=== PATIENT | female | born 1980 | race Caucasian/White ===

== ENCOUNTER 2018-10-14 22:33 | Emergency (ER) | payer MEDICAID ==
[~2018-10-14] VITALS: Ht 160 cm; Wt 58.1 kg
[2018-10-14 22:37] VITALS: BP_SYST 113
--- NOTE | 2018-10-14 22:37 | NUR ---
Placed in room 2 . Placed on quality assurance monitor body, blood pressure machine and pulse oximeter. To gown for exam. Side rails up. Report given to Tiffany SPANGLER.
--- NOTE | 2018-10-14 22:46 | NUR ---
ER at bedside examining patient.
--- NOTE | 2018-10-14 22:50 | NUR ---
Pt came to the ED for chest pain for the last 8 days. Reports that pain gets worse with inspirations and it radiates down her L arm. Denies SOB, v/d or fever. Reports she has bilateral burning sensation in her arreolas. States she has seen her primary doctor for the same issue but was told that it was due to "irritation." No other complaints/injuries noted. Will cont. to monitor.
[2018-10-14] MEDS ORDERED: ASPIRIN 81 MG TAB.CHEW PO ONE (23:00)
[2018-10-14] MEDS ORDERED: KETOROLAC TROMETHAMINE 60 MG/2 ML VIAL IM ONE (23:00)
[2018-10-15 00:46] VITALS: BP_SYST 113
--- NOTE | 2018-10-15 00:46 | NUR ---
Patient given written and verbal discharge instructions and verbalizes understanding. ER MD Dr. Seth discussed with patient the results and treatment provided. Patient in stable condition. ID arm band removed. Rx of Naprosyn given. Patient educated on pain management and to follow up with PMD. Pain Scale 0/10. Opportunity for questions provided and answered. Medication side effect fact sheet provided.
== END 2018-10-15 00:46 | disposition home or self-care (01) ==
LOC: SED 22:33
DX: M94.0 Chondrocostal junction syndrome [Tietze] (principal)
CPT/HCPCS: 71045; 96372; 99283; J1885; 93005

== ENCOUNTER 2019-08-03 08:39 | Emergency (ER) | payer MEDICAID, OTHER ==
[~2019-08-03] VITALS: Ht 160 cm; Wt 56.2 kg
[2019-08-03 08:50] VITALS: BP_SYST 121
[2019-08-03 09:44] LABS: BILIRUBIN,URINE NEGATIVE (NEGATIVE); BLOOD, URINE 3+ (NEGATIVE); COLOR,URINE YELLOW (YELLOW); GLUCOSE,URINE NEGATIVE (NEGATIVE); KETONES,URINE NEGATIVE (NEGATIVE); LEUKOCYTE ESTERASE ,URINE 2+ (NEGATIVE); NITRITE, URINE NEGATIVE (NEGATIVE); PROTEIN URINE TRACE (NEGATIVE); UROBILINOGEN,URINE 0.2 (0.2-1.0)
[2019-08-03 09:56] LABS: CLARITY/URINE SLIGHTLY CLOUDY (CLEAR)
[2019-08-03 09:59] LABS: BACTERIA,URINE MODERATE /HPF (None Seen); RBC,URINE 20-50 /HPF (0-3); WBC,URINE 20-50 /HPF (0-3)
[2019-08-03] MEDS ORDERED: PHENAZOPYRIDINE HCL 100 MG TABLET PO ONE (10:45)
[2019-08-03] MEDS ORDERED: SULFAMETHOXAZOLE/TRIMETHOPR DS 1 TABLET PO ONE (10:45)
[2019-08-03 11:00] VITALS: BP_SYST 110
== END 2019-08-03 11:00 | disposition home or self-care (01) ==
LOC: SED 08:39
DX: N39.0 Urinary tract infection, site not specified (principal); R03.0 Elevated blood-pressure reading, without diagnosis of hypertension
CPT/HCPCS: 81000-TC; 87086; 87186-TC; 99283